=== PATIENT | male | born 1955 | race Caucasian/White ===

== ENCOUNTER → 2017-11-13 | Emergency (ER) | payer OTHER ==
[~2017-11-13] VITALS: Ht 177.8 cm; Wt 99.8 kg
[~2017-11-13] MED LIST: CELEBREX100 MG PO; COZAAR25 MG; DIOVAN; NORVASC2.5 M1; SKELAXIN800 MG PO; SYMBICORT 16010.2 GM
== END | disposition home or self-care (01) ==
LOC: ER 15:44
DX: J06.9 Acute upper respiratory infection, unspecified (principal)

== ENCOUNTER 2019-01-10 07:12 | Outpatient (CLI) | payer OTHER | END 2019-01-10 07:35 | disposition home or self-care (01) | LOC: TOM 07:12 | DX: J32.4 Chronic pansinusitis (principal) ==

== ENCOUNTER 2019-04-01 05:05 | Day surgery (SDC) | payer OTHER ==
[~2019-04-01 05:05] MED LIST changes: +BREO ELLIPTA 21 EACH; +BREO ELLIPTA I1 EACH IH; +FLUTIC PO; +LATANOPROST2.5 ML OP; +LOSARTAN-HCTZ1 EACH; +SINGULAIR10 MG PO; +UROXATRAL10 MG PO
[2019-04-01] MEDS ORDERED: AMOX-CLAV 875-1 EACH PO (12:07)
[2019-04-01] MEDS ORDERED: AFRIN15 ML NASAL (12:07)
[2019-04-01] MEDS ORDERED: ULTRACET PO (12:07)
== END 2019-04-01 17:53 | disposition home or self-care (01) ==
LOC: CIR.AMB 05:05
DX: J32.4 Chronic pansinusitis (principal); J33.0 Polyp of nasal cavity

== ENCOUNTER 2019-12-03 07:54 | Outpatient (CLI) | payer OTHER ==
[~2019-12-03 07:54] MED LIST changes: +AFRIN15 ML NASAL; +AMOX-CLAV 875-1 EACH PO; +ULTRACET PO
== END 2019-12-03 13:21 | disposition home or self-care (01) ==
LOC: TOM 07:54
DX: J33.0 Polyp of nasal cavity (principal); J32.4 Chronic pansinusitis

== ENCOUNTER 2024-09-24 14:15 | Emergency (ER) | payer OTHER ==
[~2024-09-24] VITALS: Ht 182.9 cm; Wt 104.3 kg
[2024-09-24 14:35] VITALS: BP 157/90; O2SAT 97
[2024-09-24] MEDS ORDERED: COZAAR50 MG PO (14:35)
[2024-09-24] MEDS ORDERED: NORVASC5 MG PO (14:35)
== END 2024-09-24 17:02 | disposition home or self-care (01) ==
LOC: ER 14:17
DX: H60.8X2 Other otitis externa, left ear (principal); Z88.6 Allergy status to analgesic agent